=== PATIENT | female | born 1950 | race Caucasian/White ===

== ENCOUNTER → 2018-02-11 | Outpatient (CLI) | payer MEDICARE, OTHER ==
[~2018-02-11] MED LIST: LEVAQUIN 750MG750 M1 PO; PREDNISONE20 MG PO; PROAIR HFA0.09 MG/AC IH; RT SPIRIVA18 MCG IH; SYNTHROID0.1 MG/TAB PO
== END ==
LOC: MC.RAD 08:56
DX: N63.22 Unspecified lump in the left breast, upper inner quadrant (principal)